=== PATIENT | female | born 1995 | race Caucasian/White ===

== ENCOUNTER → 2021-04-12 11:48 | Outpatient (BNVA) | payer BC, SELFPAY | PROVIDERS: Family Provider Nurse Practitioner; PCP Nurse Practitioner; Visit Provider Nurse Practitioner Women's Health | DX: N92.6 Irregular menstruation, unspecified (principal) | CPT/HCPCS: 81025 ==

== ENCOUNTER → 2021-05-03 10:26 | Outpatient (BNVA) | payer BC, SELFPAY | PROVIDERS: Family Provider Nurse Practitioner; PCP Nurse Practitioner; Visit Provider Nurse Practitioner Women's Health | DX: Z34.90 Encounter for supervision of normal pregnancy, unspecified, unspecified trimester (principal) | CPT/HCPCS: 81000 ==

== ENCOUNTER → 2021-05-24 09:54 | Outpatient (BNVA) | payer BC, SELFPAY | PROVIDERS: Family Provider Nurse Practitioner; PCP Nurse Practitioner; Visit Provider Obstetrics & Gynecology | DX: Z34.01 Encounter for supervision of normal first pregnancy, first trimester (principal) | CPT/HCPCS: 80307; 84315; 85025; 86592; 86762; 86803; 86850; 86900; 87086; 87340; 87491; 87591; 87661; 88175 ==

== ENCOUNTER → 2021-09-09 12:02 | Outpatient (BNVA) | payer BC, SELFPAY | PROVIDERS: Family Provider Nurse Practitioner; PCP Nurse Practitioner; Visit Provider Obstetrics & Gynecology | DX: Z34.01 Encounter for supervision of normal first pregnancy, first trimester (principal); Z3A.00 Weeks of gestation of pregnancy not specified | CPT/HCPCS: 82950; 84443; 85025 ==

== ENCOUNTER → 2021-11-04 14:07 | Outpatient (BNVA) | payer BC, SELFPAY | PROVIDERS: Family Provider Nurse Practitioner; PCP Nurse Practitioner; Visit Provider Obstetrics & Gynecology | DX: Z34.80 Encounter for supervision of other normal pregnancy, unspecified trimester (principal); Z3A.00 Weeks of gestation of pregnancy not specified | CPT/HCPCS: 84315; 87081 ==

== ENCOUNTER 2021-12-14 06:10 | Inpatient (IN) | payer BC, SELFPAY ==
[2021-12-14] VITALS (36 sets, daily range): BP systolic 123–161; BP diastolic 59–98; PULSE 64–114; RESP 17–20; TEMP 36.1–36.9; BMI 34.9
[2021-12-14] MEDS: miSOPROStol 100 mcg tablet 25 MCG VAGINAL (07:18)
[2021-12-14 07:34] LABS: Basophils # 0.1 10^3/uL (0.0-0.1); Basophils % 0.4 %; Eosinophils # 0.2 10^3/uL (0.0-0.8); Eosinophils % 1.4 %; Hematocrit 40.4 % (37.0-47.0); Hemoglobin 13.5 g/dL (11.5-15.3); Lymphocytes % 14.8 %; Mean Corpuscular HGB Conc 33.4 g/dL (30.0-36.0); Mean Corpuscular Hemoglobin 28.5 pg (28.0-34.0); Mean Corpuscular Volume 85.4 fl (81-99); Mean Platelet Volume 11.4 fL (7.4-10.4); Monocytes # 0.9 10^3/uL (0.2-0.9); Monocytes % 6.9 %; Neutrophils # 10.29 10^3/uL (1.8-7.7); Nucleated Red Blood Cells % 0 %; Platelet Count 273 10^3/cmm (130-400); Red Blood Count 4.73 10^6/uL (4.1-5.3); Red Cell Distribution Width 13.2 % (12.1-15.1); White Blood Count 13.7 10^3/uL (4.0-10.0)
[2021-12-14] MEDS: oxytocin 30 UNIT/500 ML BAG IV (13:10)
[2021-12-14] MEDS: dextrose 5%-lactated ringers 1,000 ML 125 ML IV ×2 (13:10→21:38)
[2021-12-14] MEDS: ondansetron 2 mg/ML SDV 2 mL 4 MG IVP (19:50)
--- NOTE | 2021-12-14 20:40 | PM.OPHPUD ---
Labor & Delivery H&P Update Date of Procedure: December 15, 2021 Date H&P Performed: 12/09/21 H&P update information: I have reviewed H&P completed within last 30 days, I have examined patient prior to procedure and No changes to prior documentation Changes to previous documentation: patient is here for induction at 42 weeks cervix Admission Diagnosis:
[2021-12-14] MEDS: metoclopramide 5 mg/mL SDV 2 mL 10 MG IV (22:16)
[2021-12-14] MEDS: hyDROXYzine 25 mg Capsule 50 MG PO (23:51)
[2021-12-15] VITALS (40 sets, daily range): BP systolic 105–166; BP diastolic 43–92; PULSE 64–173; RESP 16–18; TEMP 36.3–36.9; O2SAT 98
[2021-12-15] MEDS: fentaNYL 50 mcg/mL INJ 2mL IVP (01:16)
[2021-12-15] MEDS: dextrose 5%-lactated ringers 1,000 ML 125 ML IV (01:17)
[2021-12-15] MEDS: lidocaine 2% INJ 20 mL INJECTION (03:31)
--- NOTE | 2021-12-15 03:42 | P.PCNOB_ITS ---
Delivery Note: Date of delivery: December 15, 2021 Pre-delivery diagnoses: iup@ 42 weeks, 1 day Post-delivery diagnoses: same, delivered Procedure: Delivering Physician: Clint Estimated blood loss (mL): 20 Findings: term female in CHRIS presentation Pre-Delivery Course: The patient was admitted for induction at term. She received one dose of cytotec and pitocin was started. She had SROM and eventually had complete cervical dilation. She began to push Delivery: The patient had complete cervical dilation and began to push. The head delivered in the CHRIS position over an intact perineum under no anesthesia. A single nuchal cord was reduced at the perineum. The nose and mouth were bulb suctioned. The shoulders and body delivered atraumatically. The baby was placed onto the mother's abdomen. The cord was clamped and cut. Cord blood was obtained. The placenta delivered spontaneously. It was inspected and found to be intact. Inspection of the perineum revealed a right vaginal laceration. It was repaired with 2 interrupted sutures.. Estimated blood loss 20 mL. Apgars on baby were 7 at 1 minute and 9 at 5 minutes. Weight of baby is 7 pounds 7 ounces. Mother and baby were stable post delivery. 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
[2021-12-15] MEDS: benzocaine-menthol 78 gm Canister 1 SPRAY TOPICAL (06:54)
[2021-12-15] MEDS: lanolin oint 7 gm 1 APPLIC TOPICAL (06:54)
[2021-12-15] MEDS: prenatal vitamin Capsule 1 CAP PO (10:15)
[2021-12-15] MEDS: docusate sodium 100 mg Capsule PO ×2 (10:15→18:31)
[2021-12-15] MEDS: ibuprofen 800 mg tablet PO ×3 (10:16→21:49)
[2021-12-15 15:36] LABS: Hematocrit 35.7 % (37.0-47.0); Hemoglobin 11.4 g/dL (11.5-15.3); Mean Corpuscular HGB Conc 31.9 g/dL (30.0-36.0); Mean Corpuscular Hemoglobin 28.1 pg (28.0-34.0); Mean Corpuscular Volume 88.1 fl (81-99); Mean Platelet Volume 10.9 fL (7.4-10.4); Platelet Count 242 10^3/cmm (130-400); Red Blood Count 4.05 10^6/uL (4.1-5.3); Red Cell Distribution Width 13.5 % (12.1-15.1)
[2021-12-16 04:40] VITALS: BP 124/74; PULSE 86; TEMP 36.5; O2SAT 97
--- NOTE | 2021-12-16 08:15 | PM.DCS ---
Discharge Providers Date of Admission: 12/14/21 06:10 Date of Discharge: December 16, 2021 Attending Provider at Admission: Jimy Brown MD Attending Provider at Discharge: Kendra Jaramillo MD Primary Care Provider: VIVEK Sevilla Reason for Visit Reason for Visit: 11/30/21 Hospital Course Hospital Course The patient was admitted for induction at 42 weeks. She had spontaneous delivery of a term female . She did well and was ready for discharge on day #1 Physical Exam Narrative: doing well. 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 No other concerns. Const: COMMON NORMALS: no acute distress, patient oriented x3, no limitations, healthy appearing, alert and well nourished GENERAL APPEARANCE: cooperative, comfortable, well kempt and well developed ORIENTATION/CONSCIOUSNESS: Yes awake, Yes oriented to person, Yes oriented to place and Yes oriented to time Resp: COMMON NORMALS: normal respiratory effort EFFORT & INSPECTION: Yes able to speak in complete sentences GI: COMMON NORMALS: Soft to palpation and non-tender PALPATION: Yes Soft to palpation Extremity: COMMON NORMALS: no calf tenderness Neuro: COMMON NORMALS: patient oriented x3 SENSORIUM/ORIENTATION: Yes alert, Yes oriented to person, Yes oriented to place and Yes oriented to time Psych: APPEARANCE: Yes well kempt Discharge Data Studies Completed and Pending Laboratory Results WBC 22.0 10^3/uL (4.0-10.0) H 12/15/21 15:23 RBC 4.05 10^6/uL (4.1-5.3) L 12/15/21 15:23 Hgb 11.4 g/dL (11.5-15.3) L 12/15/21 15:23 Hct 35.7 % (37.0-47.0) L 12/15/21 15:23 MCV 88.1 fl (81-99) 12/15/21 15:23 MCH 28.1 pg (28.0-34.0) 12/15/21 15: MCHC 31.9 g/dL (30.0-36.0) 12/15/21 15: RDW 13.5 % (12.1-15.1) 12/15/21 15:23 Plt Count 242 10^3/cmm (130-400) 12/15/21 15:23 MPV 10.9 fL (7.4-10.4) H 12/15/21 15:23 Neut % (Auto) 75.0 % 12/14/21 07:00 Lymph % (Auto) 14.8 % 12/14/21 07:00 [place] % (Auto) 6.9 % 12/14/21 07:00 Eos % (Auto) 1.4 % 12/14/21 07:00 Baso % (Auto) 0.4 % 12/14/21 07:00 Neut # (Auto) 10.29 10^3/uL (1.8-7.7) H 12/14/21 07:00 Lymph # (Auto) 2.0 10^3/uL (0.8-4.8) 12/14/21 07:00 [place] # (Auto) 0.9 10^3/uL (0.2-0.9) 12/14/21 07:00 Eos # (Auto) 0.2 10^3/uL (0.0-0.8) 12/14/21 07:00 Baso # (Auto) 0.1 10^3/uL (0.0-0.1) 12/14/21 07:00 Nucleated RBC % (auto) 0 % 12/14/21 07:00 Nucleated RBCs # 0.0 /100WBC 12/14/21 07:00 Vitals Last Vital Signs Temp 97.7 F 12/16/21 04:40 Pulse 86 12/16/21 04:40 Resp 16 12/15/21 18:35 BP 124/74 12/16/21 04:40 Pulse Ox 97 12/16/21 04:40 Discharge Plan Discharge Patient Disposition: Home Condition: Stable Prescriptions: Continued One A Day Women's DHA 28 mg iron- 800 mcg combo pack PO 0RF Discharge Orders: Discharge Order (Routine); Ordered 12/16/21 Ordered By: Kendra Jaramillo Patient Instructions: Depression (DC), Bleeding (DC), Preeclampsia and Eclampsia After Delivery (GEN), OB Discharge Report, OB Food/Drug Interaction Guide, OB Care at Home, Opioid Safety, OB Home Care, OB Proud Parent Packet, OB Vaginal Deliveries - [facility], Abnormal Bleeding Discharge Attestations Time Spent in Discharge Care*: less than 30 min Quality Metrics Clinical Quality Measures [ No reported AMI, CVA or VTE this stay] Coding Level of Care Code Acute Chg FW DC note
[2021-12-16 10:00] VITALS: BP 124/79; PULSE 79; RESP 16; TEMP 36.9
== END 2021-12-16 10:20 | disposition home or self-care (01) | DRG 807 ==
PROVIDERS: Admitting Provider Family Medicine; PCP Nurse Practitioner; Visit Provider Obstetrics & Gynecology
DX: O48.0 Post-term pregnancy (principal); Z37.0 Single live birth; Z3A.42 42 weeks gestation of pregnancy; O69.9XX0 Labor and delivery complicated by cord complication, unspecified, not applicable or unspecified; O70.0 First degree perineal laceration during delivery
CPT/HCPCS: 36415; 59025; 59409; 84315; 85025; 85027; 99211; J2405; J2765; J3010

== ENCOUNTER → 2022-12-10 14:59 | Outpatient (BNVA) | payer BC, SELFPAY | PROVIDERS: PCP Nurse Practitioner; Visit Provider Nurse Practitioner Family | DX: J02.9 Acute pharyngitis, unspecified (principal) | CPT/HCPCS: 85025; 86308; 87070; 87077; 87184; 87880 ==

== ENCOUNTER → 2023-05-11 13:03 | Outpatient (BNVA) | payer BC, SELFPAY | PROVIDERS: PCP Nurse Practitioner; Visit Provider Nurse Practitioner Women's Health | DX: Z32.01 Encounter for pregnancy test, result positive (principal) | CPT/HCPCS: 81025 ==

== ENCOUNTER 2023-05-31 19:37 | Emergency (ER) | payer BC, SELFPAY ==
[2023-05-31 19:55] LABS: Hematocrit 40.9 % (36-47); Mean Corpuscular Hemoglobin 27.3 pg (27-33); Mean Corpuscular Volume 85.4 fl (85-98); Platelet Count 278 10^3/cmm (157-399); Red Blood Count 4.79 10^6/uL (3.85-5.65); Red Cell Distribution Width 13.1 % (12.1-15.1); White Blood Count 8.38 10^3/uL (3.29-11.43)
[2023-05-31 20:02] VITALS: BP 123/79; PULSE 74; RESP 16; TEMP 36.6; O2SAT 99; BMI 26.6
[2023-05-31 20:40] LABS: Absolute Eosinophils 0.1 10^3/cmm (0.0-0.7); Absolute Neutrophil 4.2 10^3/cmm (1.4-6.5); Absolute Segmented Neutrophil 4.2 10/cmm (1.6-7.1); Eosinophils 1 %; Lymphocytes 32 %; Lymphocytes Absolute 3.3 10^3/cmm (1.2-3.4); Monocytes Absolute 0.8 10^3/cmm (0.1-0.6); Platelet Estimate Normal (Normal); Segmented Neutrophils 50 %; Slide Review Slide Review Perform; Total Cells Counted 100 (0-100)
--- NOTE | 2023-05-31 20:45 | USR_ITS ---
PROCEDURE INFORMATION: Exam: US First Trimester, Transabdominal and US , Transvaginal Exam date and time: 05/31/2023 9:42 PM Age: 28 years old Clinical indication: Lmp or gestational age (in weeks): 6w2d; Antepartum complications; Bleeding; Additional info: Threatened miscarriage TECHNIQUE: Imaging protocol: Real-time transabdominal obstetrical ultrasound of the maternal pelvis and a first trimester , less than 14 weeks 0 days, with image documentation. Transvaginal imaging was used for better evaluation of the fetus, adnexa, and/or cervix. COMPARISON: US OB [facility] w [facility] 12/06/2021 3:09 PM FINDINGS: Gestation: No yolk sac identified within the gestational sac. No pole identified within the gestational sac. Small perigestational fluid collection measuring 4 x 7 x 2 mm. Extra-embryonic membranes/Placenta: Unremarkable. No subchorionic bleed. Amniotic fluid: Amniotic fluid and extra-amniotic fluid is normal for gestational age. BIOMETRY: Gestational age (AUA): There is an intrauterine gestational sac with a mean sac diameter 1.32 cm correlating with a gestational age of 6 weeks 2 days. MATERNAL: Uterus: Unremarkable. Cervix: The cervix is closed measuring 3.2 cm length. Right ovary/adnexa: The right ovary measures 3.2 x 3.0 x 3.1 cm and 15.5 mL. There is arterial flow to the right ovary. There is a corpus luteal cyst in the right ovary measuring approximately 2.0 cm. Left ovary/adnexa: The left ovary measures 2.3 x 1.4 x 3.2 cm 5.1 mL. There is vascular flow to the left ovary. Intraperitoneal space: No intraperitoneal free fluid. US/US OB <= 14 weeks fetus [id number] IMPRESSION: Intrauterine of unknown viability with an intrauterine gestational sac containing in no yolk sac or pole. This may be due to early gestational age. Serial beta HCG level testing and if clinically indicated repeat pelvic ultrasound may be of benefit.
--- NOTE | 2023-05-31 20:50 | W.ED.PREGNAN ---
HPI - General: Chief complaint: OB/Uterine Contractions Stated complaint: 8 weeks started bleeding Time Seen by Provider: 05/31/23 20:34 Source: patient Mode of arrival: ambulatory Limitations: no limitations History of Present Illness: 28-year-old female who states he is currently 8 weeks states that since Thursday she has had some bleeding states that is mainly spotting she is passing small clots she denies any pain she denies any fevers. States she has had 1 other with no complications. PFSH ED PFSH: Medical History No pertinent past medical history neg hx:htn, dm, thyroid, dvt/pe PCP: none Surgical History No pertinent past surgical history Family History Grandmother Breast cancer maternal Denies family history of Colon cancer Ovarian cancer Diabetes Hyperlipidemia Hypertension Uterine cancer Thyroid disease Stroke Physical Exam Const: COMMON NORMALS: no acute distress, patient oriented x3 and healthy appearing HENMT: COMMON NORMALS: normocephalic and atraumatic HEAD & SCALP: normocephalic and atraumatic Eye: COMMON NORMALS: conjunctivae normal CONJUNCTIVA: Yes conjunctivae normal Neck/C-Spine: COMMON NORMALS: full ROM and supple Chest: COMMONS NORMALS: normal inspection of the chest Resp: COMMON NORMALS: normal respiratory effort Cardio: COMMON NORMALS: regular rate, regular rhythm and No murmurs present (Cardio) RATE: regular rate RHYTHM: regular rhythm GI: COMMON NORMALS: Normal to inspection, nondistended, normoactive bowel sounds present, Soft to palpation, non-tender and no masses PALPATION: Yes Soft to palpation Extremity: COMMON NORMALS: normal to inspection and full ROM Neuro: COMMON NORMALS: patient oriented x3, moves all extremities and no focal motor deficits Psych: COMMON NORMALS: mental status grossly normal, Normal thought process present and cooperative THOUGHT PROCESS: Normal thought process present Skin: COMMON NORMALS: no rashes or lesions noted and no wounds GENERAL SKIN EXAM: no rashes or lesions noted Course Vital Signs: Vital signs: Vital Signs Temperature 97.8 F 05/31/23 20:02 Pulse Rate 74 05/31/23 20:02 Respiratory Rate 16 05/31/23 20:02 Blood Pressure 123/79 05/31/23 20:02 Pulse Oximetry 99 05/31/23 20:02 Oxygen Delivery Me thod Room Air 05/31/23 20:02 MDM - OB/Uterine Contractions Medical Decision Making Patient presents here with threatened miscarriage she had some slight bleeding ultrasound showed gestational sac not show pole I am concerned that she likely has a blighted ovum I did inform her it could still be an early versus blighted ovum her bleeding here is light at this time she is stable for discharge informed that she needs to follow-up with her OB this week to have a repeat quantitative to follow the trend if she has any worsening bleeding she is to return she understands agrees to plan. Has no pain here no signs of ectopic at this time Medical Records I reviewed the patient's medical records. Lab Data I reviewed the patient's lab results. 05/31/23 19:47 Laboratory Results WBC 8.38 10^3/uL (3.29-11.43) 05/31/23 19:47 RBC 4.79 10^6/uL (3.85-5.65) 05/31/23 19:47 Hgb 13.10 g/dL (11.27-16.99) 05/31/23 19:47 Hct 40.9 % (36-47) 05/31/23 19:47 MCV 85.4 fl (85-98) 05/31/23 19:47 MCH 27.3 pg (27-33) 05/31/23 19:47 MCHC 32.0 g/dL (30-55) 05/31/23 19:47 RDW 13.1 % (12.1-15.1) 05/31/23 19:47 Plt Count 278 10^3/cmm (157-399) 05/31/23 19:47 MPV 10.0 fL (7.4-10.4) 05/31/23 19:47 Lymph % (Auto) Not Reportable 05/31/23 19:47 [place] % (Auto) Not Reportable 05/31/23 19:47 Lymph # (Auto) Not Reportable 05/31/23 19:47 [place] # (Auto) Not Reportable 05/31/23 19:47 Total Counted 100 (0-100) 05/31/23 19:47 Atypical Lymphs % 7.0 % (0-5) H 05/31/23 19:47 Absolute Neutrophils 4.2 10^3/cmm (1.4-6.5) 05/31/23 19:47 Segmented Neutrophils 50 % 05/31/23 19:47 Abs Segm Neuts (Man) 4.2 10/cmm (1.6-7.1) 05/31/23 19:47 Band Neutrophils 0.0 % 05/31/23 19:47 Abs Band Neuts (Man) 0.0 10^3/cmm (0.0-1.2) 05/31/23 19:47 Absolute Lymphocytes 3.3 10^3/cmm (1.2-3.4) 05/31/23 19:47 Lymphocytes (Manual) 32 % 05/31/23 19:47 Monocytes (Manual) 10.0 % 05/31/23 19:47 Absolute Monocytes 0.8 10^3/cmm (0.1-0.6) H 05/31/23 19:47 Eosinophils (Manual) 1 % 05/31/23 19:47 Absolute Eosinophils 0.1 10^3/cmm (0.0-0.7) 05/31/23 19:47 Basophils (Manual) 0.0 % 05/31/23 19:47 Absolute Basophils 0.0 10^3/cmm (0.0-0.2) 05/31/23 19:47 Platelet Estimate Normal (Normal) 05/31/23 19:47 Ser , Semi-Qnt 5939.00 mIU/mL 05/31/23 19:47 All radiology interpretation(s) finalized by discharge Discharge Plan Discharge Patient Disposition: Home Clinical Impression: Threatened miscarriage Condition: Stable Prescriptions: No Action One A Day Women's DHA 28 mg iron- 800 mcg combo pack PO Discharge Orders: Discharge ED (Routine); Ordered 05/31/23 Ordered By: Yogi Nevarez Referrals: Isaac Johns MD [Physician] - 1-3 days Lizett Dean FNP-C [Primary Care Provider] - Discharge Diet: Advance as tolerated Discharge Activity: Resume usual activity Patient Instructions: Threatened Miscarriage (ED) Coding Level of Care Code 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
[2023-05-31 22:12] VITALS: BP 123/79; PULSE 74; RESP 16; TEMP 36.6; O2SAT 99
== END 2023-05-31 22:14 | disposition home or self-care (01) ==
PROVIDERS: Emergency Provider Emergency Medicine; PCP Nurse Practitioner
DX: O20.0 Threatened abortion (principal); Z3A.08 8 weeks gestation of pregnancy
CPT/HCPCS: 36415; 76801; 84702; 85007; 85025; 99284

== ENCOUNTER 2023-06-02 16:35 | Outpatient (CLI) | payer BC, SELFPAY | END 2023-06-02 16:36 | disposition home or self-care (01) | PROVIDERS: PCP Nurse Practitioner; Visit Provider Obstetrics & Gynecology | DX: O20.0 Threatened abortion (principal); Z3A.00 Weeks of gestation of pregnancy not specified | CPT/HCPCS: 36415; 84702 ==

== ENCOUNTER → 2023-06-08 07:57 | Outpatient (BNVA) | payer BC, SELFPAY | PROVIDERS: PCP Nurse Practitioner; Visit Provider Obstetrics & Gynecology | DX: O03.4 Incomplete spontaneous abortion without complication (principal) | CPT/HCPCS: 76817 ==

== ENCOUNTER 2023-06-09 11:30 | Day surgery (SDC) | payer BC, SELFPAY ==
--- NOTE | 2023-06-08 11:14 | ANES.PREANE2 ---
Pre-Anesthetic Assessment Height/Weight: Height 1.65 m Operation Date: 06/09/23 14:35 Proposed Procedures p Suction dilation and curettage 06339,O03.4(Not Applicable) - Isaac Johns MD Familial anesthetic complications: none Was Beta Daphne taken within 24 hours: N/A Was Clonidine taken within 24 hours: N/A Social No alcohol and No tobacco Exam alert, oriented x 3, clear to auscultation bilaterally and regular rate & rhythm Airway Submandibular: within normal limits Cervical ROM: within normal limits Mallampati: Class II Dentition: full History/ROS No significant history except as noted Anesthetic Plan ASA status: 1 Anesthesia: General Medications/Allergies Home Medications Medication Instructions Recorded Confirmed Last Taken Type No Known Home Medications 06/08/23 06/08/23 Unknown History Allergies Allergy/AdvReac Type Severity Reaction Status Date / Time No Known Allergies Allergy Verified 06/08/23 08:41 [facility] Anesthesia Medical History No pertinent past medical history neg hx:htn, dm, thyroid, dvt/pe PCP: none Surgical History No pertinent past surgical history Family History Grandmother Breast cancer maternal Denies family history of Colon cancer Ovarian cancer Diabetes Hyperlipidemia Hypertension Uterine cancer Thyroid disease Stroke Data Anesthesia Cardiac Studies: No Data to Display
[2023-06-09] VITALS (10 sets, daily range): BP systolic 104–132; BP diastolic 47–79; PULSE 75–102; RESP 10–20; TEMP 36.1–37.2; O2SAT 98–100; BMI 27.9
[2023-06-09 11:58] LABS: Add Urine Microscopic? NO; Charge for UA Resulting for Rev
[2023-06-09 12:03] LABS: Bilirubin Urine Neg (Negative); Blood Urine Neg (Negative); Glucose Urine UA Norm (Normal); Ketones Urine 1+ (Negative); Leukocyte Esterase Urine Negative (Negative); Nitrate Urine Negative (Negative); Protein Urine Neg (Negative); Urine Appearance Clear (CLEAR); Urine Color Yellow (Yellow); Urobilinogen Urine Norm (Negative); pH Urine 7 (5-7)
--- NOTE | 2023-06-09 12:14 | W.PM.OPSUD ---
Surgery/Procedure H&P Update DATE OF PROCEDURE: June 09, 2023 DATE H&P PERFORMED: 06/08/23 H&P UPDATE INFORMATION: I have reviewed H&P completed within last 30 days, I have examined patient prior to procedure and No changes to prior documentation PREOP DIAGNOSIS: Imcomplete AB PLANNED PROCEDURE: Operation Date: 06/09/23 12:50 Proposed Procedures p Suction dilation and curettage 45872,O03.4(Not Applicable) - Isaac Johns MD
[2023-06-09] MEDS: sodium chloride 0.9% 500 ML IV (12:22)
--- NOTE | 2023-06-09 12:32 | P.ANESUD_ITS ---
Pre-Anesthetic Update Pre-Anesthetic Assessment: Date of Surgery/Procedure: 06/09/23 Preop Julissa gnosis: Imcomplete AB Proposed Procedure: Operation Date: 06/09/23 12:50 Proposed Procedures p Suction dilation and curettage 91019,O03.4(Not Applicable) - Isaac Johns MD Any changes to Pre-Anesthetic Assessment?: No Last Intake: Intake Last Liquid Date 06/08/23 Last Liquid Time 20:00 Last Solid Date 06/08/23 Last Solid Time 20:00 Labs Last 48hrs: Urine 06/09/23 Range/Units 11:46 Urine Color Yellow (Yellow) Urine Appearance Clear (CLEAR) Urine pH 7 (5-7) Ur Specific Gravit y 1.010 (1.005-1.030) Urine Protein Neg (Negative) Urine Glucose (UA) Norm (Normal) Urine Ketones 1+ H (Negative) Urine Nitrate Negative (Negative) Urine Bilirubin Neg (Negative) Ur Leukocyte Meena ase Negative (Negative) Vitals: Temperature 98.9 F 06/09/23 11:42 Temperature Source Temporal Artery S can 06/09/23 11:42 Pulse Rate 75 06/09/23 11:42 Pulse Rhythm Regular 06/09/23 11:42 Pulse Strength 3+ Normal 06/09/23 11:42 Respiratory Rate 16 06/09/23 11:42 Blood Pressure 123/73 06/09/23 11:42 Blood Pressure Annetta n 89 06/09/23 11:42 Pulse Oximetry 98 06/09/23 11:42 Oxygen Delivery Me thod Room Air 06/09/23 11:42 Exam: Pre-Anes Outpt Exam: alert, oriented x 3, clear to auscultation bilaterally and regular rate & rhythm Cardiac Studies: No Data to Display
[2023-06-09] MEDS: sodium chloride 0.9% 1,000 ML 30 ML IV (13:27)
[2023-06-09] MEDS: lidocaine-epi 2% 20 mL INJ INJECTION (13:29)
[2023-06-09] MEDS: ceFAZolin 2,000 MG in sodium chloride 0.9% (plus) 50 ML 100 MG IV (13:33)
--- NOTE | 2023-06-09 14:00 | PM.OP ---
Operative Report Date of procedure: June 09, 2023 Pre-op diagnosis: Incomplete AB Procedure done: Suction dilation and curettage Specimens removed/disposition: Products of conception Surgeon: Isaac Johns MD Estimated blood loss (mL): 5 IV fluids (mL): 200 Procedure: After informed consent, the patient was taken to the Operating Room where general anesthesia was administered. The patient was examined under anesthesia and found to have a normal uterus with normal adnexa. She was placed in the dorsal lithotomy position and prepped and draped in sterile fashion. A sterile weighted speculum was placed in the patient?s vagina. A single-tooth tenaculum was then applied to the cervix. The uterus was then gently sounded to 8 cm and a suction curette was advanced gently to the uterine fundus and product of conception emptied. A sharp curettage was then performed until a gritty texture was noted. There was minimal bleeding noted and the tenaculum was removed with good hemostasis noted. The patient tolerated the procedure well. The patient was taken to the recovery area in stable condition.
--- NOTE | 2023-06-09 16:55 | ANE.PACU2 ---
Inpatient post-anesthesia follow up: Airway intact: Yes Vital signs: Temperature 97.6 F Pulse Rate 84 Respiratory Rate 18 Blood Pressure 132/79 Pulse Oximetry 100 Oxygen Delivery Me thod Room Air Oxygen Flow Rate Fraction of Inspir ed Oxygen Hydration adequate: Yes Nausea and vomiting: No Pain level: 2 Mental status: Baseline
== END 2023-06-09 15:20 | disposition home or self-care (01) ==
PROVIDERS: PCP Nurse Practitioner; Visit Provider Obstetrics & Gynecology
PROC: (CPT 58120; principal; 2023-06-09 12:40)
DX: O03.4 Incomplete spontaneous abortion without complication (principal)
CPT/HCPCS: 59812; 36415; 81003; 88305; J0690; J1100; J1885; J2250; J2405; J2704; J3010; J7030; J7040

== ENCOUNTER → 2023-10-07 14:00 | Outpatient (BNVA) | payer BC, SELFPAY | PROVIDERS: PCP Nurse Practitioner; Visit Provider Obstetrics & Gynecology | DX: Z34.91 Encounter for supervision of normal pregnancy, unspecified, first trimester (principal); Z3A.01 Less than 8 weeks gestation of pregnancy | CPT/HCPCS: 76817; 84702 ==

== ENCOUNTER → 2023-10-12 07:56 | Outpatient (BNVA) | payer BC, SELFPAY | PROVIDERS: PCP Nurse Practitioner; Visit Provider Nurse Practitioner Women's Health | DX: Z32.01 Encounter for pregnancy test, result positive (principal) | CPT/HCPCS: 81025 ==

== ENCOUNTER → 2023-10-19 08:53 | Outpatient (BNVA) | payer BC, SELFPAY | PROVIDERS: PCP Nurse Practitioner; Visit Provider Obstetrics & Gynecology | DX: Z34.91 Encounter for supervision of normal pregnancy, unspecified, first trimester (principal); Z3A.01 Less than 8 weeks gestation of pregnancy | CPT/HCPCS: 76817 ==

== ENCOUNTER → 2023-11-09 08:05 | Outpatient (BNVA) | payer BC, SELFPAY | PROVIDERS: PCP Nurse Practitioner; Visit Provider Nurse Practitioner Women's Health | DX: Z34.00 Encounter for supervision of normal first pregnancy, unspecified trimester (principal); Z3A.00 Weeks of gestation of pregnancy not specified | CPT/HCPCS: 80307; 84315; 84439; 84443; 84481; 85025; 86592; 86762; 86803; 86850; 86900; 87086; 87340; 87491; 87591; 87806 ==

== ENCOUNTER → 2023-11-30 10:26 | Outpatient (BNVA) | payer BC, SELFPAY | PROVIDERS: PCP Nurse Practitioner; Visit Provider Obstetrics & Gynecology | DX: Z34.90 Encounter for supervision of normal pregnancy, unspecified, unspecified trimester (principal); Z3A.09 9 weeks gestation of pregnancy | CPT/HCPCS: 84315; 87491; 87591 ==

== ENCOUNTER 2024-01-25 09:37 | Outpatient (CLI) | payer BC, SELFPAY ==
--- NOTE | 2024-01-25 11:15 | USR_ITS ---
PROCEDURE INFORMATION: Exam: US , Limited Exam date and time: 01/25/2024 9:54 AM Age: 28 years old Clinical indication: Screening exam; Routine US, uterus; Additional info: Z34.82 - encounter for supervision of other normal pregna. . . TECHNIQUE: Imaging protocol: Real-time ultrasound of the maternal uterus with image documentation. Exam focused on the clinical indication. COMPARISON: US OB transvaginal [id number] 10/19/2023 8:55 AM FINDINGS: Gestation: Single viable IUP in cephalic presentation. Placenta is located posteriorly. Amniotic fluid volume is normal. No abnormality noted. Gestational age is 20 weeks 2 days with an MALIK of 06/11/2024. heart rate: 167 bpm BIOMETRY: Estimated weight: 341.82 g. EFW by AC, BPD, FL, HC, [place]lock 1985 43rd percentile Biparietal diameter (BPD): 4.71 cm. EGA (BPD) is 20 w 2 d. 47.6 % percentile Head circumference (HC): 17.45 cm. EGA (HC) is 20 w 0 d. 27.8 % percentile Abdominal circumference (AC): 15.08 cm. EGA (AC) is 20 w 2 d. 44.9 % percentile Femur length (FL): 3.28 cm. EGA (FL) is 20 w 2 d. 40.4 % percentile HC/AC: 1.16. (Normal range: 1.07 - 1.25) FL/HC: 18.8. (Normal range: 16.54 - 19.94) FL/BPD: 69.64 FL/AC: 21.75 US/US OB >= 14 weeks fetus [id number] IMPRESSION: Unremarkable viable IUP at 20 weeks 2 days
== END 2024-01-25 09:38 | disposition home or self-care (01) ==
LOC: RAD 09:37
PROVIDERS: PCP Nurse Practitioner; Visit Provider Obstetrics & Gynecology
DX: Z34.82 Encounter for supervision of other normal pregnancy, second trimester (principal); Z3A.20 20 weeks gestation of pregnancy
CPT/HCPCS: 76805

== ENCOUNTER 2024-03-07 13:54 | Outpatient (CLI) | payer BC, SELFPAY ==
--- NOTE | 2024-03-07 14:00 | USR_ITS ---
PROCEDURE INFORMATION: Exam: US , Follow up Exam date and time: 03/07/2024 2:11 PM Age: 29 years old Clinical indication: Screening exam; Routine US, uterus; Additional info: Z36.2 - encounter for other screening follow-up LABS AND CLINICAL REPORTS: Gestational age (Established): 26 w 6 d Estimated due date (Established): 06/07/2024 TECHNIQUE: Imaging protocol: Transabdominal ultrasound of the uterus, real time with image documentation. Follow-up (eg, re-evaluation of size by measuring standard growth parameters and amniotic fluid volume, re-evaluation of organ system(s) suspected or confirmed to be abnormal on a previous scan). COMPARISON: US OB >= 14 weeks fetus [id number] 01/25/2024 9:54 AM FINDINGS: Gestation: Single live intrauterine gestation. heart rate: 142 bpm. presentation and position: Cephalic presentation. Placenta: No placenta previa. Posterior placenta is incompletely imaged. Amniotic fluid index: Amniotic fluid volume is subjectively normal. Deepest vertical pocket is 4.4 cm. ANATOMY: diaphragm: diaphragm is normal. MATERNAL: Cervix: Cervix is long and closed. Cervical length is 4.3 cm. US/[place] [id number] IMPRESSION: Single live intrauterine gestation. Limited exam with no apparent complications.
== END 2024-03-07 13:55 | disposition home or self-care (01) ==
LOC: RAD 13:55
PROVIDERS: PCP Nurse Practitioner; Visit Provider Nurse Practitioner Women's Health
DX: Z36.2 Encounter for other antenatal screening follow-up (principal); Z3A.26 26 weeks gestation of pregnancy
CPT/HCPCS: 76816; 82950; 84315

== ENCOUNTER → 2024-03-21 08:04 | Outpatient (BNVA) | payer BC, SELFPAY | PROVIDERS: PCP Nurse Practitioner; Visit Provider Obstetrics & Gynecology | DX: Z34.90 Encounter for supervision of normal pregnancy, unspecified, unspecified trimester (principal); Z34.82 Encounter for supervision of other normal pregnancy, second trimester; Z3A.00 Weeks of gestation of pregnancy not specified | CPT/HCPCS: 84315; 85025 ==

== ENCOUNTER → 2024-04-29 08:01 | Outpatient (BNVA) | payer BC, SELFPAY | PROVIDERS: PCP Nurse Practitioner; Visit Provider Nurse Practitioner Women's Health | DX: Z53.9 Procedure and treatment not carried out, unspecified reason (principal) | CPT/HCPCS: 84315 ==

== ENCOUNTER → 2024-05-17 15:51 | Outpatient (BNVA) | payer BC, SELFPAY | PROVIDERS: PCP Nurse Practitioner; Visit Provider Obstetrics & Gynecology | DX: Z34.80 Encounter for supervision of other normal pregnancy, unspecified trimester (principal) | CPT/HCPCS: 84315; 87081 ==

== ENCOUNTER → 2024-06-09 10:23 | Outpatient (BNVA) | payer BC, SELFPAY | PROVIDERS: PCP Nurse Practitioner; Visit Provider Obstetrics & Gynecology | DX: Z34.80 Encounter for supervision of other normal pregnancy, unspecified trimester (principal); O48.0 Post-term pregnancy | CPT/HCPCS: 76819; 84315 ==

== ENCOUNTER 2024-06-10 07:37 | Inpatient (IN) | payer BC, SELFPAY ==
[2024-06-10] VITALS (21 sets, daily range): BP systolic 101–126; BP diastolic 54–73; PULSE 64–105; RESP 16–18; TEMP 36.2–36.7; BMI 34.7
[2024-06-10 08:15] LABS: Basophils % 0.4 %; Eosinophils # 0.1 10^3/uL (0.0-0.8); Eosinophils % 0.8 %; Lymphocytes # 2.3 10^3/uL (0.8-4.8); Lymphocytes % 21.2 %; Mean Corpuscular HGB Conc 32.8 g/dL (30-55); Mean Corpuscular Hemoglobin 28.3 pg (27-33); Mean Corpuscular Volume 86.1 fl (85-98); Mean Platelet Volume 10.3 fL (7.4-10.4); Monocytes # 0.8 10^3/uL (0.2-0.9); Monocytes % 7.9 %; Neutrophils # 7.24 10^3/uL (1.8-7.7); Neutrophils % 67.9 %; Nucleated Red Blood Cells % 0 %; Platelet Count 233 10^3/cmm (157-399); Red Blood Count 4.53 10^6/uL (3.85-5.65); Red Cell Distribution Width 13.2 % (12.1-15.1); White Blood Count 10.65 10^3/uL (3.29-11.43)
[2024-06-10] MEDS: miSOPROStol 100 mcg tablet 25 MCG VAGINAL ×2 (09:07→15:40)
--- NOTE | 2024-06-10 15:26 | P.HP_ITS ---
Providers/Chief Complaint 2 Admitting Physician: Brett De Luna MD Primary LOGISTICS PROGRAM MANAGER: Isaac Johns MD Primary Care Provider: VIVEK Sevilla Chief Complaint: IOL HPI LOGISTICS PROGRAM MANAGER History of Present Illness Wendy Wheat is a 29 year old female SA1 EDC June 07, 2024 at 40 w 3 d admitted for induction of labor no complications no c/o + active movements h/o x one Present Details : 3 Para: 1 Labs Rubella: Immune RPR: Negative GBS: Negative Medications/Allergies Home Medications Medication Instructions Recorded Confirmed Last Taken Type docosahexaenoic acid 200 mg 200 mg PO DAILY 11/09/23 06/09/24 Unknown History capsule ( DHA) Allergies Allergy/AdvReac Type Severity Reaction Status Date / Time No Known Allergies Allergy Verified 06/09/24 11:16 PFSH LOGISTICS PROGRAM MANAGER 2 PFSH: Medical History No pertinent past medical history neg hx:htn, dm, thyroid, dvt/pe PCP: none Surgical History H/O dilation and curettage (~2022) treatment of SAB-- performed by [facility] Family History Grandmother Breast cancer maternal Denies family history of Colon cancer Ovarian cancer Diabetes Hyperlipidemia Hypertension Uterine cancer Thyroid disease Stroke Social History Smoking and tobacco/nicotine status: never used tobacco/nicotine History History History 2 3 Term 1 0 Miscarriages/Ectopic 1 Living Children 1 Care MALIK Calculator 2 Estimated Delivery Date Method Current WG Current Estimate 06/07/24 LMP (Certain) 40w 3d Other Estimates 06/11/24 Ultrasound #1 39w 6d Specific Issues/Plans * none Vitals/I&O/Wt Last Vital Signs Temp 97.2 F L 06/10/24 14:31 Pulse 88 06/10/24 14:20 Resp 18 06/10/24 12:07 BP 119/57 06/10/24 14:20 O2 Del Method Room Air 06/10/24 07:28 Weight last 48 hrs Weight 208 lb 8 oz Physical Exam 2 Narrative: Weight 205 lbs, 5?5? VS normal General comfortable, awake, alert Lungs: clear Cor: RRR Abd: nontender Cervix: 1-2 cm / 0% / -4 / posterior / cephalic Ext: no edema External monitor: heart tracing good variability, + accelerations Data 06/10/24 08:08 Results Labs OB ([facility]): 2 Obstetrics US 03/07/24 Obstetrics US/Biophysical Profile Blood Type A Positive 06/10/24 Antibody Screen Negative 06/10/24 Hct 39.0 % (36-47) 06/10/24 Hgb 12.80 g/dL (11.27-16.99) 06/10/24 Rho(D) Type Rh positive 06/10/24 Plt Count 233 10^3/cmm (157-399) 06/10/24 Hep Bs Antigen Non-reactive (Nonreactive) 11/09/23 Hepatitis C Antibody Non-reactive (Nonreactive) 11/09/23 Rubella IgG Antibody 93.3 IU/mL (0.0-10.0) H 11/09/23 RPR Nonreactive (Nonreactive) 11/09/23 HIV 1&2 Ab & HIV 1 Ag Non-reactive (Non-Reactiv) 11/09/23 TSH 1.17 uIU/mL (0.27-4.20) 11/09/23 Free T4 1.09 ng/dL (0.82-1.77) 11/09/23 C.trachomatis RNA (TMA) Not detected (NOT DETECTED) N.gonorrhoeae RNA (TMA) Not detected (NOT DETECTED) T. vaginalis Amp RNA Not detected (NOT DETECTED) 11/30/23 Chlamydia/GC Comment See note 11/30/23 Gest Glucose Tolerance 89 mg/dL (70-139) 02/17/24 Ser , Semi-Qnt 1451.00 mIU/mL 10/07/23 HCG, Qual Positive (Negative) H 10/12/23 Urine Opiates Screen Negative ng/mL (Negative) 11/09/23 Ur Barbiturates Screen Negative ng/mL (Negative) 11/09/23 Ur Phencyclidine Scrn Negative ng/mL (Negative) 11/09/23 Ur Amphetamines Screen Negative ng/mL (Negative) 11/09/23 U Benzodiazepines Scrn Negative ng/mL (Negative) 11/09/23 Urine Cocaine Screen Negative ng/mL (Negative) 11/09/23 U Marijuana (THC) Screen Negative ng/mL (Negative) 11/09/23 Micro Urine Specimen 11/09/23 A&P Assessment and plan (1) Supervision of other normal : 40 w 3 d fetus reassuring GBS negative admit for induction of labor plan Cytotec 25 ug intravaginal Attestations 2 Medical Necessity Statement*: patient at 40 w 3 d, admitted for induction of labor Coding Level of Care Code Acute Code for Chg Fwd Diagnoses Supervision of other normal Z34.80 Time Spent (min) 30
--- NOTE | 2024-06-10 18:45 | P.PN_ITS ---
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: Interval history: fetus reassuring feeling mild UCs received two doses of Cytotec 25 ug intravaginal cervix: 1 cm / 75% / -4 / posterior plan start Pitocin per protocol Labor: Station: -2 Amniotic Membrane Status: Ruptured Monitor Mode: External Contraction Pattern: Regular Vitals/I&O/Wt Last Vital Signs Temp 97.2 F L 06/10/24 14:31 Pulse 79 06/11/24 02:00 Resp 17 06/11/24 00:16 BP 106/74 06/11/24 02:00 Pulse Ox 97 06/11/24 00:16 O2 Del Method Room Air 06/10/24 07:28 06/10/24 06/10/24 06/11/24 14:59 22:59 06:59 Intake Total 11.316 / 11.316 35.316 Balance 11.316 / 11.316 .316 Weight last 48 hrs Weight 208 lb 8 oz Data 06/10/24 08:08 A&P Assessment and plan (1) Supervision of other normal : Attestations 2 Medical Necessity Statement*: patient at 40 w 3 d, admitted for induction of labor Coding Level of Care Code Acute Code for Chg Fwd Diagnoses Supervision of other normal Z34.80 Time Spent (min) 30
[2024-06-10] MEDS: dextrose 5%-lactated ringers 1,000 ML 125 ML IV (19:22)
[2024-06-10] MEDS: oxytocin 30 UNIT/500 ML BAG IV (19:22)
[2024-06-11] VITALS (18 sets, daily range): BP systolic 99–141; BP diastolic 50–79; PULSE 69–103; RESP 15–17; TEMP 36.6–36.7; O2SAT 97–99
[2024-06-11] MEDS: fentaNYL 50 mcg/mL INJ 2mL IVP (00:16)
--- NOTE | 2024-06-11 01:20 | P.PN_ITS ---
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 Subjective: Interval history: DELIVERY NOTE cervix complete / 0 station heart tracing with deep variable decelerations patient encouraged to push brought head down to + 2 station heart tracing continued to have prolonged decelerations to 80s Kiwi vacuum applied Mild traction used through three uterine contractions brought head to perineum + nuchal cord, reduced shoulders delivered easily vigorous male cord gases obtained normal placenta and cord no episiotomy / lacerations EBL: 300 cc no complications Labor: Station: -2 Amniotic Membrane Status: Ruptured Monitor Mode: External Contraction Pattern: Regular Vitals/I&O/Wt Last Vital Signs Temp 97.2 F L 06/10/24 14:31 Pulse 79 06/11/24 02:00 Resp 17 06/11/24 00:16 BP 106/74 06/11/24 02:00 Pulse Ox 97 06/11/24 00:16 O2 Del Method Room Air 06/10/24 07:28 06/10/24 06/10/24 06/11/24 14:59 22:59 06:59 Intake Total 11.316 / 11.316 35.316 Balance 11.316 / 11.316 .316 Weight last 48 hrs Weight 208 lb 8 oz Data 06/10/24 08:08 A&P Assessment and plan (1) Vaginal delivery: Attestations 2 Medical Necessity Statement*: patient s/p vacuum-assisted vaginal delivery Coding Level of Care Code Acute Code for Chg Fwd Diagnoses Vaginal delivery O80 Time Spent (min) 60
--- NOTE | 2024-06-11 01:25 | PM.DELIVERY ---
Delivery Note: Date of delivery: June 11, 2024 Pre-delivery diagnoses: 40 w 3 d induction of labor Post-delivery diagnoses: 40 w 3 d induction of labor vacuum-assisted vaginal delivery Procedure: induction of labor vacuum-assisted vaginal delivery Op report anesthesia: None Delivering Physician: Brett De Luna MD Estimated blood loss (mL): 300 Findings: cervix complete / 0 station heart tracing with deep variable decelerations patient encouraged to push brought head down to + 2 station heart tracing continued to have prolonged decelerations to 80s Kiwi vacuum applied Mild traction used through three uterine contractions brought head to perineum + nuchal cord, reduced shoulders delivered easily vigorous male cord gases obtained normal placenta and cord no episiotomy / lacerations EBL: 300 cc no complications Pre-Delivery Course: patient received cytotec 25 ug intravaginal x two doses then pitocin per protocol Delivery: vacuum-assisted vaginal delivery Post-Delivery Status: good History History History 3 Term 1 0 Miscarriages/Ectopic 1 Living Children 1 A&P Assessment and plan (1) Vaginal delivery: Coding Level of Care Code Acute Code for Chg Fwd Diagnoses Vaginal delivery O80 Time Spent (min) 60
[2024-06-11] MEDS: benzocaine-menthol 78 gm Canister 1 SPRAY TOPICAL (02:28)
[2024-06-11] MEDS: dextrose 5%-lactated ringers 1,000 ML 125 ML IV (02:30)
[2024-06-11] MEDS: PRENATAL VIT NO.130/IRON/FOLIC 1 EACH TABLET PO (09:40)
[2024-06-11] MEDS: docusate sodium 100 mg Capsule PO ×2 (09:40→20:03)
[2024-06-11] MEDS: ibuprofen 800 mg tablet PO ×2 (09:41→20:04)
--- NOTE | 2024-06-11 12:05 | P.PN_ITS ---
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: Interval history: no c/o no headaches, dizziness, nausea, abdominal pain, bleeding normal lochia mild perineal pain, relieved with pain meds eating, voiding, ambulating well Labor: Station: -2 Amniotic Membrane Status: Ruptured Monitor Mode: External Contraction Pattern: Regular Vitals/I&O/Wt Last Vital Signs Temp 98.0 F 06/11/24 07:15 Pulse 73 06/11/24 09:45 Resp 15 06/11/24 09:45 BP 117/71 06/11/24 09:45 Pulse Ox 99 06/11/24 09:45 O2 Del Method Room Air 06/11/24 09:45 06/11/24 06/11/24 06/11/24 06:59 14:59 22:59 Intake Total 1586.601 / 1597.917 Output Total 100 / 100 Balance 1486.601 / 1497.917 Weight last 48 hrs Weight 208 lb 8 oz Physical Exam 2 Narrative: afebrile, VS normal comfortable, awake, alert Abd: soft, nontender. fundus firm Ext: no edema; nontender Data 06/11/24 14:10 A&P Assessment and plan (1) Vaginal delivery: PPD #1 vacuum-assisted vaginal delivery doing well normal course continue care Attestations 2 Medical Necessity Statement*: patient s/p vaginal delivery, for care Coding Level of Care Code Acute Code for Chg Fwd Diagnoses Vaginal delivery O80 Time Spent (min) 20
[2024-06-11 14:22] LABS: Mean Corpuscular HGB Conc 33.6 g/dL (30-55); Mean Corpuscular Volume 86.5 fl (85-98); Mean Platelet Volume 10.5 fL (7.4-10.4); Platelet Count 233 10^3/cmm (157-399); Red Blood Count 4.51 10^6/uL (3.85-5.65); Red Cell Distribution Width 13.1 % (12.1-15.1); White Blood Count 18.59 10^3/uL (3.29-11.43)
[2024-06-12 06:25] VITALS: BP 111/74; PULSE 83; RESP 16; TEMP 36.7; O2SAT 99
[2024-06-12] MEDS: docusate sodium 100 mg Capsule PO (09:59)
[2024-06-12] MEDS: ibuprofen 800 mg tablet PO (09:59)
[2024-06-12] MEDS: PRENATAL VIT NO.130/IRON/FOLIC 1 EACH TABLET PO (09:59)
[2024-06-12 10:03] VITALS: BP 106/72; PULSE 76; RESP 15; TEMP 36.6; O2SAT 99
[2024-06-12 11:15] VITALS: BP 110/74; PULSE 74; RESP 16
[2024-06-12 11:17] VITALS: BP 110/74; PULSE 74; RESP 16
--- NOTE | 2024-06-12 12:05 | PM.OBGYPN ---
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 fundus firm Ext: no edema; nontender Data 06/11/24 14:10 A&P Assessment and plan (1) Vaginal delivery: PPD #2 vacuum-assisted vaginal delivery doing well discharge to home today instructions and precautions given call/return if fever, chills, headache, blurry vision, nausea, vomiting, abdominal pain; vaginal bleeding or discharge; shortness of breath, chest pain, leg pains or swelling; inability to void, perineal pain or swelling; feelings of depression or mood changes; thoughts of suicide or harming others; inability to care for baby. f/u in 6 weeks or PRN Attestations Medical Necessity Statement*: patient s/p vaginal delivery, plan to discharge to home today Coding Level of Care Code Acute Code for Chg Fwd Diagnoses Vaginal delivery O80 Time Spent (min) 20
--- NOTE | 2024-06-12 12:15 | P.DS_ITS ---
Discharge Providers FIRE PROTECTION DESIGNER Date of Admission: 06/10/24 07:37 Date of Discharge: 06/12/24 Attending Provider at Admission: Brett De Luna MD Attending Provider at Discharge: Brett De Luna MD Consults: none Primary FIRE PROTECTION DESIGNER: Isaac Johns MD Primary Care Provider: VIVEK Sevilla Diagnoses at Discharge Discharge Diagnosis (1) Vaginal delivery: Details from hospital stay: [address] [facility] [facility] June 07, 2024 at 40 w 3 d admitted for induction of labor h/o x one patient was given cytotec and pitocin patient progressed to complete dilatation heart tracing at that point showed deep variable decelerations vacuum-assisted vaginal delivery was accomplished without any complications there were no episiotomy or lacerations patient did well and was discharged to home on the second day Status: Acute Reason for Visit Reason for Visit: IOL Brief History: [address] [facility] June 07, 2024 at 40 w 3 d admitted for induction of labor h/o x one Hospital Course Hospital Course [address] [facility] June 07, 2024 at 40 w 3 d admitted for induction of labor h/o x one patient was given cytotec and pitocin patient progressed to complete dilatation heart tracing at that point showed deep variable decelerations vacuum-assisted vaginal delivery was accomplished without any complications there were no episiotomy or lacerations patient did well and was discharged to home on the second day Information Peripartum Data: Infant Delivery Method: Operative Vaginal Laceration description: None Episiotomy description: None complications: none Physical Exam Narrative: afebrile, VS normal comfortable, awake, alert Abd: soft, nontender. fundus firm Ext: no edema; nontender History History History 3 Term 1 0 Miscarriages/Ectopic 1 Living Children 1 Discharge Data Studies Completed and Pending Laboratory Results WBC 18.59 10^3/uL (3.29-11.43) H 06/11/24 14:10 RBC 4.51 10^6/uL (3.85-5.65) 06/11/24 14:10 Hgb 13.10 g/dL (11.27-16.99) 06/11/24 14:10 Hct 39.0 % (36-47) 06/11/24 14:10 MCV 86.5 fl (85-98) 06/11/24 14:10 MCH 29.0 pg (27-33) 06/11/24 14:10 MCHC 33.6 g/dL (30-55) 06/11/24 14:10 RDW 13.1 % (12.1-15.1) 06/11/24 14:10 Plt Count 233 10^3/cmm (157-399) 06/11/24 14:10 MPV 10.5 fL (7.4-10.4) H 06/11/24 14:10 Neut % (Auto) 67.9 % 06/10/24 08:08 Lymph % (Auto) 21.2 % 06/10/24 08:08 [place] % (Auto) 7.9 % 06/10/24 08:08 Eos % (Auto) 0.8 % 06/10/24 08:08 Baso % (Auto) 0.4 % 06/10/24 08:08 Neut # (Auto) 7.24 10^3/uL (1.8-7.7) 06/10/24 08:08 Lymph # (Auto) 2.3 10^3/uL (0.8-4.8) 06/10/24 08:08 [place] # (Auto) 0.8 10^3/uL (0.2-0.9) 06/10/24 08:08 Eos # (Auto) 0.1 10^3/uL (0.0-0.8) 06/10/24 08:08 Baso # (Auto) 0.0 10^3/uL (0.0-0.1) 06/10/24 08:08 Nucleated RBC % (auto) 0 % 06/10/24 08:08 Nucleated RBCs # 0.0 /100WBC 06/10/24 08:08 Blood Type A Positive 06/10/24 08:08 Rho(D) Type Rh positive 06/10/24 08:08 Antibody Screen Negative 06/10/24 08:08 Procedures Performed induction of labor vacuum-assisted vaginal delivery Vitals Last Vital Signs Temp 97.8 F 06/12/24 10:03 Pulse 74 06/12/24 11:17 Resp 16 06/12/24 11:17 BP 110/74 06/12/24 11:17 Pulse Ox 99 06/12/24 10:03 O2 Del Method Room Air 06/12/24 10:03 Results Labs OB ([facility]): Obstetrics US 03/07/24 Obstetrics US/Biophysical Profile Blood Type A Positive 06/10/24 Antibody Screen Negative 06/10/24 Hct 39.0 % (36-47) 06/11/24 Hgb 13.10 g/dL (11.27-16.99) 06/11/24 Rho(D) Type Rh positive 06/10/24 Plt Count 233 10^3/cmm (157-399) 06/11/24 Hep Bs Antigen Non-reactive (Nonreactive) 11/09/23 Hepatitis C Antibody Non-reactive (Nonreactive) 11/09/23 Rubella IgG Antibody 93.3 IU/mL (0.0-10.0) H 11/09/23 RPR Nonreactive (Nonreactive) 11/09/23 HIV 1&2 Ab & HIV 1 Ag Non-reactive (Non-Reactiv) 11/09/23 TSH 1.17 uIU/mL (0.27-4.20) 11/09/23 Free T4 1.09 ng/dL (0.82-1.77) 11/09/23 C.trachomatis RNA (TMA) Not detected (NOT DETECTED) N.gonorrhoeae RNA (TMA) Not detected (NOT DETECTED) T. vaginalis Amp RNA Not detected (NOT DETECTED) 11/30/23 Chlamydia/GC Comment See note 11/30/23 Gest Glucose Tolerance 89 mg/dL (70-139) 02/17/24 Ser , Semi-Qnt 1451.00 mIU/mL 10/07/23 HCG, Qual Positive (Negative) H 10/12/23 Urine Opiates Screen Negative ng/mL (Negative) 11/09/23 Ur Barbiturates Screen Negative ng/mL (Negative) 11/09/23 Ur Phencyclidine Scrn Negative ng/mL (Negative) 11/09/23 Ur Amphetamines Screen Negative ng/mL (Negative) 11/09/23 U Benzodiazepines Scrn Negative ng/mL (Negative) 11/09/23 Urine Cocaine Screen Negative ng/mL (Negative) 11/09/23 U Marijuana (THC) Screen Negative ng/mL (Negative) 11/09/23 Micro Urine Specimen 11/09/23 Discharge Plan Discharge Patient Disposition: Home Condition: Stable Prescriptions: Continued DHA 200 mg capsule 200 mg PO DAILY Discharge Orders: Discharge Order (Routine); Ordered 06/12/24 Ordered By: Brett De Luna Discharge Diet: Usual diet Discharge Activity: Increase activity as tolerated Patient Instructions: Depression (DC), Opioid Safety (DC), Preeclampsia and Eclampsia After Delivery (GEN), Hemorrhage (DC), OB Discharge Report, OB Food/Drug Interaction Guide, Opioid Safety, OB Home Care, OB Vaginal Deliveries - [facility], Abnormal Bleeding Discharge Attestations FIRE PROTECTION DESIGNER 2 Time Spent in Discharge Care*: less than 30 min Coding Level of Care Code Acute Code for Chg Fwd Diagnoses Vaginal delivery O80 Time Spent (min) 20
== END 2024-06-12 11:15 | disposition home or self-care (01) | DRG 807 ==
LOC: OBGYN 07:38
PROVIDERS: Admitting Provider Obstetrics & Gynecology; PCP Nurse Practitioner; Visit Provider Obstetrics & Gynecology
DX: O48.0 Post-term pregnancy (principal); Z37.0 Single live birth; O76 Abnormality in fetal heart rate and rhythm complicating labor and delivery; O69.81X0 Labor and delivery complicated by cord around neck, without compression, not applicable or unspecified; Z3A.40 40 weeks gestation of pregnancy
CPT/HCPCS: 36415; 59025; 59409; 85025; 85027; 86850; 86900; 96374; J2590; J3010; J7121